=== PATIENT | female | born 1960 | race Caucasian/White ===

== ENCOUNTER 2016-04-27 14:57 | Emergency (ER) | payer OTHER ==
[~2016-04-27] VITALS: Ht 157.5 cm; Wt 64.8 kg
[2016-04-27 15:10] VITALS: BP 137/84; PULSE 82; RESP 18; TEMP 98.9; O2SAT 96
[2016-04-27 19:55] LABS: AUTOMATED NEUTROPHIL # 7.7 TH/MM3 (1.8-7.7); BASOPHIL # 0.1 TH/MM3 (0-0.2); BASOPHIL % 0.9 % (0.0-2.0); EOSINOPHIL # 0.2 TH/MM3 (0-0.4); EOSINOPHIL % 1.5 % (0.0-4.0); LYMPH % 40.8 % (9.0-44.0); LYMPHOCYTE # 5.9 TH/MM3 (1.0-4.8); MEAN CORPUSCULAR HEMOGLOBIN 29.4 PG (27.0-34.0); NEUT % 52.8 % (16.0-70.0); PLATELET COUNT 284 TH/MM3 (150-450); RED BLOOD COUNT 5.51 MIL/MM3 (4.00-5.30); RED CELL DISTRIBUTION WIDTH 12.8 % (11.6-17.2); WHITE BLOOD COUNT 14.5 TH/MM3 (4.0-11.0)
[2016-04-27 20:00] LABS: HEMO FLAGS AUTO DIFF
[2016-04-27 20:06] LABS: POTASSIUM 4.2 MEQ/L (3.5-5.1)
[2016-04-27 20:10] LABS: BICARBONATE 24.1 MEQ/L (21.0-32.0)
[2016-04-27 20:22] LABS: BANDS 2 % (0-6); EOSINOPHILS 1 % (0-4); POLYS (SEG NEUTROPHILS) 53 % (16-70); WBC DIFF SAMPLE 100
[2016-04-27 20:24] LABS: PLATELET ESTIMATE SMEAR NORMAL (NORMAL); PLATELET MORPHOLOGY NORMAL (NORMAL); SCAN/DIFF FINAL DIFF MANUAL
--- NOTE | 2016-04-27 20:26 | RADHPO ---
EXAM DATE/TIME: 04/27/2016 19:25 [facility] COMPARISON: No previous studies available for comparison. INDICATIONS : Cough MEDICAL HISTORY : None. SURGICAL HISTORY : None. ENCOUNTER: Initial ACUITY: 3 days PAIN SCORE: 0/10 LOCATION: Bilateral chest FINDINGS: PA and lateral views of the chest demonstrate the lungs to be symmetrically aerated without evidence of mass, infiltrate or effusion. The cardiomediastinal contours are unremarkable. Osseous structure s are intact. CONCLUSION: No acute disease. Randolph Celaya MD on April 27, 2016 at 20:24 Board Certified Radiologist. This report was verified electronically.
[2016-04-27] MEDS ORDERED: LEVO.15 PO (22:05)
[2016-04-27] MEDS ORDERED: TEMA30CA PO (22:05)
[2016-04-27] MEDS ORDERED: VENTAER INH ×2 (22:05→22:09)
[2016-04-27] MEDS ORDERED: PROM6.256 PO (22:09)
[2016-04-27] MEDS ORDERED: LEVA500T PO (22:09)
[2016-04-27] MEDS ORDERED: PRED20 PO (22:09)
--- NOTE | 2016-04-27 22:13 | PD ---
HPI Chief Complaint: Cold / Flu Symptoms Time Seen by Provider: 21:53 Travel History International Travel<30 days: No Contact w/Intl Traveler<30days: No Traveled to known affect area: No History of Present Illness HPI This 55-year-old female is complaining of cough and congestion. She has a history of COPD. She used to smoke 3 packs a day. She says she is down to half a pack. She uses an albuterol nebulizer and inhaler. She's been sick for several weeks. She took a course of doxycycline which seemed to help but then she got worse again. He feels short of breath at times. She has been on prednisone a lot in the past. 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 [facility] Past Medical History Cardiovascular Problems: Yes (Avascular necrosis ) Respiratory: Yes (Asthma, bronchitis ) ?: Not Social History Tobacco Use: Yes Allergies-Medications (Allergen,Severity, Reaction): Coded Allergies: Penicillin (Verified Allergy, Severe, Throat swelling, 04/27/16) Reported Meds & Prescriptions Reported Meds & Active Scripts Active Promethazine-Codeine Liq 6.25-10 Mg/5 Ml Syrp 10 Ml PO Q4H PRN 7 Days Levaquin (Levofloxacin) 500 Mg Tab 500 Mg PO DAILY Prednisone 20 Mg Tab 60 Mg PO DAILY 5 Days 40 MG twice a day x 3 days, then 20 MG daily x 3 days, then 10 MG daily x 3 days Ventolin Hfa 18 GM Inh (Albuterol Sulfate) 90 Mcg/Act Aer 1 Puff INH Q4H PRN Reported Ventolin Hfa 18 GM Inh (Albuterol Sulfate) 90 Mcg/Act Aer 1 Puff INH Q4H PRN Temazepam 30 Mg Cap 30 Mg PO HS PRN Synthroid (Levothyroxine Sodium) 150 Mcg Tab 150 Mcg PO DAILY Review of Systems General / Constitutional: No: Fever, Chills Eyes: No: Diploplia HENT: Positive: Sore Throat, No: Headaches, Lightheadedness Cardiovascular: No: Chest Pain or Discomfort Respiratory: Positive: Cough, Shortness of Breath Gastrointestinal: No: Vomiting, Diarrhea Genitourinary: No: Urgency Musculoskeletal: No: Myalgias Skin: No Rash Physical Exam Narrative GENERAL: Well-developed female SKIN: Warm and dry. HEAD: Atraumatic. Normocephalic. EYES: Pupils equal and round. No scleral icterus. No injection or drainage. ENT: No nasal bleeding or discharge. Mucous membranes pink and moist. NECK: Trachea midline. No JVD. CARDIOVASCULAR: Regular rate and rhythm. No murmur appreciated. RESPIRATORY: No accessory muscle use. Occasional rhonchi, diminished breath sounds overall. Breath sounds equal bilaterally. GASTROINTESTINAL: Abdomen soft, non-tender, nondistended. Hepatic and splenic margins not palpable. MUSCULOSKELETAL: No obvious deformities. No clubbing. No cyanosis. No edema. NEUROLOGICAL: Awake and alert. No obvious cranial nerve deficits. Motor grossly within normal limits. Normal speech. PSYCHIATRIC: Appropriate mood and affect; insight and judgment normal. Data Data Last Documented VS Vital Signs Date Time Temp Pulse Resp B/P Pulse Ox O2 Delivery O2 Flow Rate FiO2 04/27/16 22:06 Room Air 04/27/16 15:10 98.9 82 18 137/84 96 Orders Complete Blood Count With Diff (04/27/16 19:19) Basic Metabolic Panel (Bmp) (04/27/16 19:19) Chest, Pa & Lat (04/27/16 19:19) Blood Culture (04/27/16 19:19) Iv Access Insert/Monitor (04/27/16 19:19) Ecg Monitoring (04/27/16 19:19) Oxygen Administration (04/27/16 19:19) Oximetry (04/27/16 19:19) Electrocardiogram (04/27/16 19:19) Prednisone (Deltasone) (04/27/16 22:15) Levofloxacin (Levaquin) (04/27/16 22:15) Labs Laboratory Tests Test 04/27/16 19:46 White Blood Count 14.5 TH/MM3 Red Blood Count 5.51 MIL/MM3 Hemoglobin 16.2 GM/DL Hematocrit 49.0 % Mean Corpuscular Volume 89.0 FL Mean Corpuscular Hemoglobin 29.4 PG Mean Corpuscular Hemoglobin 33.0 % Concent Red Cell Distribution Width 12.8 % Platelet Count 284 TH/MM3 Mean Platelet Volume 7.8 FL Neutrophils (%) (Auto) 52.8 % Lymphocytes (%) (Auto) 40.8 % Monocytes (%) (Auto) 4.0 % Eosinophils (%) (Auto) 1.5 % Basophils (%) (Auto) 0.9 % Neutrophils # (Auto) 7.7 TH/MM3 Lymphocytes # (Auto) 5.9 TH/MM3 Monocytes # (Auto) 0.6 TH/MM3 Eosinophils # (Auto) 0.2 TH/MM3 Basophils # (Auto) 0.1 TH/MM3 CBC Comment AUTO DIFF Differential Total Cells 100 Counted Neutrophils % (Manual) 53 % Band Neutrophils % 2 % Lymphocytes % 39 % Monocytes % 5 % Eosinophils % 1 % Neutrophils # (Manual) 8.0 TH/MM3 Differential Comment FINAL DIFF MANUAL Platelet Estimate NORMAL Platelet Morphology Comment NORMAL Sodium Level 141 MEQ/L Potassium Level 4.2 MEQ/L Chloride Level 108 MEQ/L Carbon Dioxide Level 24.1 MEQ/L Anion Gap 9 MEQ/L Blood Urea Nitrogen 9 MG/DL Creatinine 0.77 MG/DL Estimat Glomerular Filtration 77 ML/MIN Rate Random Glucose 93 MG/DL Calcium Level 8.9 MG/DL [facility] Medical Decision Making Medical Screen Exam Complete: Yes Emergency Medical Condition: Yes Medical Record Reviewed: Yes Differential Diagnosis Differential includes COPD, pneumonia, bronchitis, Narrative Course Chest x-ray has been read as negative. Lab work is unremarkable. Patient has COPD exacerbation secondary to infection. She will be placed on Levaquin and prednisone. Diagnosis Primary Impression: COPD exacerbation Scripts Promethazine-Codeine Liq 6.25-10 Mg/5 Ml Syrp10 Ml PO Q4H PRN (COUGH AND/OR COLD SYMPTOMS) 7 Days Ref 0 Prov:Terry Lugo MD 04/27/16 Levofloxacin (Levaquin)500 Mg Vfl012 Mg PO DAILY #7 TAB Ref 0 Prov:Terry Lugo MD 04/27/16 Prednisone 20 Mg Tab60 Mg PO DAILY 5 Days Ref 0 40 MG twice a day x 3 days, then 20 MG daily x 3 days, then 10 MG daily x 3 days Prov:Terry Lugo MD 04/27/16 Albuterol 18 GM Inh (Ventolin Hfa 18 GM Inh)90 Mcg/Act Aer1 Puff INH Q4H PRN ( SHORTNESS OF BREATH) #1 INHALER Ref 0 Prov:Terry Lugo MD 04/27/16 Disposition: 01 DISCHARGE HOME Condition: Stable Terry Lugo MD Apr 27, 2016 22:13
[2016-04-27] MEDS ORDERED: predniSONE 20 MG TAB PO ONE (22:15)
[2016-04-27] MEDS ORDERED: LEVOFLOXACIN 500 MG TAB PO ONE (22:15)
[2016-04-27 22:20] VITALS: BP 142/105
--- NOTE | 2016-04-28 17:00 | EKG ---
Date Performed: 04/27/2016 Time Performed: 19:39:28 PTAGE: 55 years EKG: Sinus rhythm with PVC(s) Inferior T wave changes are nonspecific Borderline ECG NO PREVIOUS TRACING DOCTOR: Alli Landa Interpretating Date/Time 04/28/2016 16:58:46
== END 2016-04-27 22:29 | disposition home or self-care (01) ==
LOC: PHED 14:57
DX: J44.1 Chronic obstructive pulmonary disease with (acute) exacerbation (principal); I49.3 Ventricular premature depolarization; Z72.0 Tobacco use
CPT/HCPCS: 71020; 80048; 85007; 85027; 87040; 93005; 99284; J7512

== ENCOUNTER 2016-12-07 11:59 | Emergency (ER) | payer OTHER ==
[~2016-12-07] VITALS: Ht 160 cm; Wt 70.0 kg
[~2016-12-07 11:59] MED LIST: LEVA500T PO; LEVO.15 PO; PRED20 PO; PROM6.256 PO; TEMA30CA PO; VENTAER INH
[2016-12-07 12:06] VITALS: BP 175/100; PULSE 68; RESP 15; TEMP 98.6; O2SAT 95
[2016-12-07] MEDS ORDERED: IBUP-1129 PO (12:19)
[2016-12-07] MEDS ORDERED: TRAM50TA PO (12:19)
[2016-12-07] MEDS ORDERED: SYNT175T PO (12:19)
[2016-12-07] MEDS ORDERED: KETOROLAC TROMETHAMINE 60 MG/2 ML (IM) VIAL IM ONE (12:30)
[2016-12-07] MEDS ORDERED: ORPHENADRINE INJ 60 MG/2 ML AMP IM ONE (12:30)
--- NOTE | 2016-12-07 12:31 | PD ---
HPI Chief Complaint: Back/ Neck Pain or Injury Time Seen by Provider: 12:13 Travel History International Travel<30 days: No Contact w/Intl Traveler<30days: No Traveled to known affect area: No History of Present Illness HPI 56-year-old female presents to the emergency room for evaluation of right lower back pain radiates to the right lower extremity that started this morning. Patient denies trauma or injury. States she woke up with the pain. Pain is worse with any range of motion of the back or when she applies weight to the right leg. She took 800 mg ibuprofen without any relief in symptoms. She also took a tramadol without any relief. Patient denies fever, chills, nausea, vomiting, night sweats, weight loss, IV drug use, saddle anesthesia, loss of bowel or bladder control, or lower extremity paresthesias. She has history of low back pain and states it feels like her back may be about to pop out again. States her father lives with her and has had shingles several times but she has never had it. PFSH Past Medical History Asthma: Yes Cardiovascular Problems: Yes (Avascular necrosis ) Diminished Hearing: No Respiratory: Yes (Asthma, bronchitis ) Seizures: Yes Thyroid Disease: Yes Tetanus Vaccination: < 5 Years Influenza Vaccination: Yes ?: Not Past Surgical History Appendectomy: Yes Hysterectomy: Yes Tonsillectomy: Yes Other Surgery: Yes (BREAST REDUCTION) Social History Alcohol Use: No Tobacco Use: Yes (1/2 PPD) Substance Use: No Allergies-Medications (Allergen,Severity, Reaction): Coded Allergies: bee venom protein (honey bee) (Verified Allergy, Severe, Anaphylaxis, 12/07) penicillin G (Unverified Allergy, Severe, Throat swelling, 12/07/16) Reported Meds & Prescriptions Reported Meds & Active Scripts Active Reported Tramadol (Tramadol HCl) 50 Mg Tab 50 Mg PO Q4H PRN Motrin Ib (Ibuprofen) 200 Mg Tablet 800 Mg PO DIRECTED Synthroid (Levothyroxine Sodium) 175 Mcg Tab 175 Mcg PO DAILY Temazepam 30 Mg Cap 30 Mg PO HS PRN Review of Systems Except as stated in HPI: all other systems reviewed are Neg Physical Exam Narrative GENERAL: Well-nourished, well-developed female in no acute distress. Afebrile. Ambulatory. SKIN: Focused skin assessment warm/dry. No erythema or ecchymosis. HEAD: Normocephalic. EYES: No scleral icterus. No injection or drainage. NECK: Supple, trachea midline. No JVD or lymphadenopathy. CARDIOVASCULAR: Regular rate and rhythm without murmurs, gallops, or rubs. RESPIRATORY: Breath sounds equal bilaterally. No accessory muscle use. BACK: No midline tenderness. No obvious deformity. No CVA tenderness. No rash. Tenderness to palpation of the right upper buttocks. 2+ Achilles and patellar reflexes are equal bilaterally. Data Data Last Documented VS Vital Signs Date Time Temp Pulse Resp B/P (MAP) Pulse Ox O2 Delivery O2 Flow Rate FiO2 12/07/16 12:06 98.6 68 15 175/100 (125) 95 Orders Orders Ketorolac Inj (Toradol Inj) (12/07/16 12:30) Orphenadrine Inj (Norflex Inj) (12/07/16 12:30) [facility] Medical Decision Making Medical Screen Exam Complete: Yes Emergency Medical Condition: Yes Medical Record Reviewed: Yes Differential Diagnosis Low back strain, sciatica, muscle spasm, fracture Narrative Course 56-year-old female presents to the emergency room for evaluation of low back pain that started this morning without trauma or injury. Patient has history of low back pain and states it feels as though it's about to go out again. Pain is localized to the right upper buttocks with radiation into the right leg. No focal neurological deficits. No midline tenderness. No red flag symptoms. No indication for emergent imaging at this time. Likely muscle strain with sciatica. Patient given Toradol and Norflex in the emergency room. She'll be discharged with prescriptions for ibuprofen, Robaxin, and Decadron. Told to follow up with primary care physician if symptoms persist for outpatient MRI or return for worsening symptoms. She understands and agrees to plan. Diagnosis Primary Impression: Low back strain Qualified Codes: S39.012A - Strain of muscle, fascia and tendon of lower back , initial encounter Referrals: Primary Care Physician Additional Instructions: Rest and drink plenty of fluids. Decadron as directed, until gone. Take with food. Do not take at the same time as ibuprofen. Take Robaxin as directed, as needed for pain. Take ibuprofen with food as directed, as needed for pain. Apply ice to the affected area for 20 minutes at a time, as needed for pain and swelling. Follow-up with a primary care physician. Return to the emergency room for worsening symptoms. Disposition: 01 DISCHARGE HOME Condition: Stable Theresa Al Dec 07, 2016 12:30
[2016-12-07] MEDS ORDERED: ROBA750T PO (12:32)
[2016-12-07] MEDS ORDERED: IBUP-232 PO (12:32)
[2016-12-07] MEDS ORDERED: PRED20 PO (12:32)
== END 2016-12-07 12:51 | disposition home or self-care (01) ==
LOC: PHEFT 11:59
DX: S39.012A Strain of muscle, fascia and tendon of lower back, initial encounter (principal); X58.XXXA Exposure to other specified factors, initial encounter; F17.210 Nicotine dependence, cigarettes, uncomplicated; J45.909 Unspecified asthma, uncomplicated; E07.9 Disorder of thyroid, unspecified
CPT/HCPCS: 96372; 99284; J1885; J2360

== ENCOUNTER 2017-04-06 18:02 | Emergency (ER) | payer OTHER ==
[~2017-04-06] VITALS: Ht 157.5 cm; Wt 76.0 kg
[~2017-04-06 18:02] MED LIST changes: +IBUP-1129 PO; +IBUP-232 PO; -LEVA500T PO; -LEVO.15 PO; -PROM6.256 PO; +ROBA750T PO; +SYNT175T PO; +TRAM50TA PO; -VENTAER INH
[2017-04-06 18:05] VITALS: BP 221/136; PULSE 68; RESP 22; TEMP 97.8; O2SAT 94
[2017-04-06] MEDS ORDERED: ALBUAER3 INH (18:29)
[2017-04-06] MEDS ORDERED: UMEC1AER INH (18:29)
--- NOTE | 2017-04-06 18:29 | PD ---
HPI Chief Complaint: Respiratory Symptoms Time Seen by Provider: 18:28 Travel History International Travel<30 days: No Contact w/Intl Traveler<30days: No Traveled to known affect area: No History of Present Illness HPI Patient 48-year-old female one pack per day smoker presents emergency department for evaluation of cough for the past 2 weeks. Patient states he lists, her primary care physician had prescribed her Phenergan and codeine cough syrup which was doing significant amount of relief but she has run out of this. She was also prescribed doxycycline but this gave her an upset stomach so she did not take it all. She states symptoms for 2 weeks, constant, was relieved by Phenergan and codeine cough syrup, context as smoker. No fevers no nausea vomiting no chest pain no shortness of breath. PFSH Past Medical History Hx Anticoagulant Therapy: No Asthma: Yes Cardiovascular Problems: Yes (Avascular necrosis ) Diabetes: No Diminished Hearing: No Respiratory: Yes (ASTHMA) Seizures: Yes Thyroid Disease: Yes Tetanus Vaccination: < 5 Years Influenza Vaccination: Yes ?: Not Past Surgical History Appendectomy: Yes Hysterectomy: Yes Tonsillectomy: Yes Other Surgery: Yes (BREAST REDUCTION) Social History Alcohol Use: No Tobacco Use: Yes (03/23 PPD) Substance Use: No Allergies-Medications (Allergen,Severity, Reaction): Coded Allergies: bee venom protein (honey bee) (Verified Allergy, Severe, Anaphylaxis, 04/06) penicillin G (Unverified Allergy, Severe, Throat swelling, 04/06/17) Reported Meds & Prescriptions Reported Meds & Active Scripts Active Promethazine-Codeine Liq 6.25-10 Mg/5 Ml Syrp 5 Ml PO Q6H PRN Azithromycin 250 Mg Tab 250 Mg PO DIRECTED Take 2 tabs (500 mg) on day 1 then 1 tab daily x 4 days. Prednisone 10 Mg Tab 10 Mg PO DIRECTED 60mg daily on day 1-7, 40mg on day 8-10, 20mg on day 11-13, 10mg on day 14-16 Prednisone 20 Mg Tab 40 Mg PO DAILY Take 40 mg (2 tablets) daily for 5 days Reported Anoro Ellipta Inh (Umeclidinium/Vilanterol) 62.5-25 Mcg/Act Aero 1 Puff INH DAILY Proair Hfa 8.5 GM Inh (Albuterol Sulfate) 90 Mcg/Act Aer 2 Puff INH Q4-6H PRN 108 mcg/actuation Tramadol (Tramadol HCl) 50 Mg Tab 50 Mg PO Q4H PRN Synthroid (Levothyroxine Sodium) 175 Mcg Tab 175 Mcg PO DAILY Temazepam 30 Mg Cap 30 Mg PO HS PRN Review of Systems Except as stated in HPI: all other systems reviewed are Neg Physical Exam Narrative GENERAL: Well-developed, well-nourished, smells of cigarette smoke, exhibiting nearly constant dry cough on initial evaluation. SKIN: Focused skin assessment warm/dry. No wound HEAD: Atraumatic. Normocephalic. EYES: Pupils equal and round. No scleral icterus. No injection or drainage. ENT: No nasal bleeding or discharge. Mucous membranes pink and moist. NECK: Trachea midline. No JVD. CARDIOVASCULAR: Regular rate and rhythm. No murmur appreciated. RESPIRATORY: No accessory muscle use. End expiratory wheezing which are coarse bilaterally. Breath sounds equal bilaterally. GASTROINTESTINAL: Abdomen soft, non-tender, nondistended. Hepatic and splenic margins not palpable. MUSCULOSKELETAL: No obvious deformities. No clubbing. No cyanosis. No edema. NEUROLOGICAL: Awake and alert. No obvious cranial nerve deficits. Motor grossly within normal limits. Normal speech. PSYCHIATRIC: Appropriate mood and affect; insight and judgment normal. Data Data Last Documented VS Vital Signs Date Time Temp Pulse Resp B/P (MAP) Pulse Ox O2 Delivery O2 Flow Rate FiO2 04/06/17 20:41 90 18 96 04/06/17 19:54 Room Air 04/06/17 18:05 97.8 Orders Orders Chest, Pa & Lat (04/06/17 ) Promethazine/Codeine Liq (Phenergan-Code (04/06/17 18:30) Lorazepam Inj (Ativan Inj) (04/06/17 19:30) Lidocaine Pf 2% Neb (Lidocaine Pf 2% Neb (04/06/17 19:30) Albuterol Neb (Albuterol Neb) (04/06/17 19:30) Ed Discharge Order (04/06/17 20:26) [facility] Medical Decision Making Medical Screen Exam Complete: Yes Emergency Medical Condition: Yes Differential Diagnosis Bronchitis, bronchiolitis, pneumonia Narrative Course Patient roomed in emergency department, given Phenergan and codeine cough syrup which didn't significantly control her symptoms. Lidocaine and albuterol nebulization. Chest x-ray does show evidence for bronchiolitis. No indication for laboratory workup at this time, blood pressure normalizing after cough under control. Discussed symptomatic management of bronchiolitis with patient need for follow-up the primary care physician and smoking cessation as well to avoid risk for cancer heart disease and stroke. She verbalized understanding and agreement. Will be placed on extended course of prednisone, she does have a nebulizer at home as well as albuterol she has a decent supply of. Discussed return to ED criteria need follow-up with primary care physician. Diagnosis Primary Impression: Bronchiolitis Additional Impression: Smoking Additional Instructions: Avoid sleeping pill while taking the cough syrup they may make you overly drowsy. Med/Other Pt SpecificInfo: Prescription(s) given Scripts Promethazine-Codeine Liq (Promethazine-Codeine Liq) 6.25-10 Mg/5 Ml Syrp 5 ML PO Q6H Y for COUGH AND/OR COLD SYMPTOMS, #120 ML 0 Refills Prov: Josue Wilcox MD 04/06/17 Azithromycin (Azithromycin) 250 Mg Tab 250 MG PO DIRECTED for Infection, #6 TAB 0 Refills Take 2 tabs (500 mg) on day 1 then 1 tab daily x 4 days. Prov: Josue Wilcox MD 04/06/17 Prednisone (Prednisone) 10 Mg Tab 10 MG PO DIRECTED, #63 TAB 0 Refills 60mg daily on day 1-7, 40mg on day 8-10, 20mg on day 11-13, 10mg on day 14-16 Prov: Josue Wilcox MD 04/06/17 Disposition: 01 DISCHARGE HOME Condition: Stable Josue Wilcox MD Apr 06, 2017 18:29
[2017-04-06] MEDS ORDERED: PROMETHAZINE/CODEINE 6.25 MG/10 MG/5 ML CUP PO ONE (18:30)
--- NOTE | 2017-04-06 19:07 | RADRPT ---
EXAM DATE/TIME: 04/06/2017 18:51 [facility] COMPARISON: CHEST PA & LAT, April 27, 2016, 19:25. INDICATIONS : Cough for 2 weeks. MEDICAL HISTORY : None. SURGICAL HISTORY : None. ENCOUNTER: Initial ACUITY: 2 weeks PAIN SCORE: 4/10 LOCATION: Bilateral chest FINDINGS: PA and lateral views of the chest demonstrate the lungs to be symmetrically aerated without evidence of mass, infiltrate or effusion. Peribronchial thickening noted bilaterally. The cardiomediastinal c ontours are unremarkable. Osseous structures are intact. CONCLUSION: Bronchitis/bronchiolitis. Clear lungs. Amado Rios Jr., MD on April 06, 2017 at 19:04 Board Certified Radiologist. This report was verified electronically.
[2017-04-06] MEDS ORDERED: LORazepam 2 MG/ML VIAL IM ONE (19:30)
[2017-04-06] MEDS ORDERED: RESP: ALBUTEROL 2.5 MG/3 ML NEB (SCH) NEB ONE (19:30)
[2017-04-06] MEDS ORDERED: RESP: LIDOCAINE HCL 2% 2 ML NEB NEB ONE (19:30)
[2017-04-06 19:54] VITALS: BP 173/84; PULSE 96; RESP 18; O2SAT 95
[2017-04-06] MEDS ORDERED: PRED10 PO (20:23)
[2017-04-06] MEDS ORDERED: AZIT250T3 PO (20:23)
[2017-04-06] MEDS ORDERED: PROM6.256 PO (20:26)
== END 2017-04-06 20:42 | disposition home or self-care (01) ==
LOC: PHED 18:02
DX: J21.9 Acute bronchiolitis, unspecified (principal); J45.909 Unspecified asthma, uncomplicated; F17.210 Nicotine dependence, cigarettes, uncomplicated
CPT/HCPCS: 71046; 94664; 96372; 99284; J2060; J7613

== ENCOUNTER 2017-04-25 16:50 | Emergency (ER) | payer OTHER ==
[~2017-04-25] VITALS: Ht 157.5 cm; Wt 74.0 kg
[~2017-04-25 16:50] MED LIST changes: +ALBUAER3 INH; +AZIT250T3 PO; -IBUP-1129 PO; -IBUP-232 PO; +PRED10 PO; +PROM6.256 PO; -ROBA750T PO; +UMEC1AER INH
[2017-04-25 16:51] VITALS: BP_SYST 1; PULSE 82; RESP 16; TEMP 98; O2SAT 96
[2017-04-25 17:04] VITALS: BP 208/97; PULSE 99; RESP 16; O2SAT 98
[2017-04-25] MEDS ORDERED: PROCHLORPERAZINE INJ 10 MG/2 ML VIAL IV PUSH ONE (17:30)
--- NOTE | 2017-04-25 17:38 | PD ---
HPI Chief Complaint: Headache Time Seen by Provider: 17:23 Travel History International Travel<30 days: No Contact w/Intl Traveler<30days: No Traveled to known affect area: No History of Present Illness HPI 56yo F with asthma here with c/o headache for 3 days. Said she has been fighting the cold/flu and started having bilateral frontal headache that moves back and associated with nausea and vomiting. +Photophobia. Denies any fever, neck pain, chest pain, sob, abdominal pain, focal weakness or numbness. Pt said she is wheezing but she does not want any medication now and has pump at home. PFSH Past Medical History Hx Anticoagulant Therapy: No Asthma: Yes Cardiovascular Problems: Yes (Avascular necrosis ) Diabetes: No Diminished Hearing: No Respiratory: Yes (ASTHMA) Seizures: Yes Thyroid Disease: Yes Tetanus Vaccination: < 5 Years Influenza Vaccination: Yes ?: Not Past Surgical History Appendectomy: Yes Hysterectomy: Yes Tonsillectomy: Yes Other Surgery: Yes (BREAST REDUCTION) Social History Alcohol Use: No Tobacco Use: Yes (1/2 PPD) Substance Use: No Allergies-Medications (Allergen,Severity, Reaction): Coded Allergies: bee venom protein (honey bee) (Verified Allergy, Severe, Anaphylaxis, ) penicillin G (Unverified Allergy, Severe, Throat swelling, 04/25/17) Reported Meds & Prescriptions Reported Meds & Active Scripts Active Reported Synthroid (Levothyroxine Sodium) 175 Mcg Tab 175 Mcg PO DAILY Temazepam 30 Mg Cap 30 Mg PO HS PRN Review of Systems Except as stated in HPI: all other systems reviewed are Neg Physical Exam Narrative GENERAL: 56yo F in mild distress. SKIN: Focused skin assessment warm/dry. HEAD: Atraumatic. Normocephalic. +TTP bilateral frontal sinus. EYES: Pupils equal and round at 3mm bilaterally. EOMI ENT: No nasal bleeding or discharge. Mucous membranes pink and moist. NECK: No nuchal rigidity. CARDIOVASCULAR: Regular rate and rhythm. No murmur appreciated. RESPIRATORY: No accessory muscle use. End expiratory wheezing bilaterally. GASTROINTESTINAL: Abdomen soft, non-tender, nondistended. MUSCULOSKELETAL: No obvious deformities. No clubbing. No cyanosis. No edema. NEUROLOGICAL: Awake and alert. No obvious cranial nerve deficits. Motor grossly within normal limits. Normal speech. PSYCHIATRIC: Appropriate mood and affect; insight and judgment normal. Data Data Last Documented VS Vital Signs Date Time Temp Pulse Resp B/P (MAP) Pulse Ox O2 Delivery O2 Flow Rate FiO2 04/25/17 18:33 80 16 180/82 (114) 99 Room Air 04/25/17 16:[address] Brain W/O Iv Contrast(Rout) (04/25/17 ) Prochlorperazine Inj (Compazine Inj) (04/25/17 17:30) Hydralazine Inj (Apresoline Inj) (04/25/17 17:45) Complete Blood Count With Diff (04/25/17 17:46) Basic Metabolic Panel (Bmp) (04/25/17 17:46) Prothrombin Time / Inr (Pt) (04/25/17 17:46) Act Partial Throm Time (Ptt) (04/25/17 17:46) Ketorolac Inj (Toradol Inj) (04/25/17 18:30) Labs Laboratory Tests Test 04/25/17 17:53 White Blood Count 14.4 TH/MM3 Red Blood Count 4.80 MIL/MM3 Hemoglobin 13.6 GM/DL Hematocrit 42.1 % Mean Corpuscular Volume 87.8 FL Mean Corpuscular Hemoglobin 28.4 PG Mean Corpuscular Hemoglobin Concent 32.4 % Red Cell Distribution Width 11.9 % Platelet Count 256 TH/MM3 Mean Platelet Volume 8.3 FL Neutrophils (%) (Auto) 59.0 % Lymphocytes (%) (Auto) 32.2 % Monocytes (%) (Auto) 4.8 % Eosinophils (%) (Auto) 1.7 % Basophils (%) (Auto) 2.3 % Neutrophils # (Auto) 8.6 TH/MM3 Lymphocytes # (Auto) 4.6 TH/MM3 Monocytes # (Auto) 0.7 TH/MM3 Eosinophils # (Auto) 0.2 TH/MM3 Basophils # (Auto) 0.3 TH/MM3 CBC Comment DIFF FINAL Differential Comment Prothrombin Time 9.7 SEC Prothromb Time International Ratio 1.0 RATIO Activated Partial Thromboplast Time 25.9 SEC Blood Urea Nitrogen 10 MG/DL Creatinine 0.53 MG/DL Random Glucose 104 MG/DL Calcium Level 9.2 MG/DL Sodium Level 139 MEQ/L Potassium Level 3.5 MEQ/L Chloride Level 108 MEQ/L Carbon Dioxide Level 23.2 MEQ/L Anion Gap 8 MEQ/L Estimat Glomerular Filtration Rate 118 ML/MIN MDM Medical Decision Making Medical Screen Exam Complete: Yes Emergency Medical Condition: Yes Differential Diagnosis Hypertensive emergency vs. sinus headache vs. migraine headache Narrative Course 56yo F with headache for 3 days. Blood pressure was markedly elevated at 208/ 97. Pt given hydralazine 10mg IV and blood pressure has improved to 180/82. Labs reviewed, WBC 14.4, pt has been on steroids for her asthma. Pt wheezing but not sob and does not want treatment now. BMP unremarkable. CT brain unremarkable. Pt given toradol and compazine and reevaluated at bedside. Said headache has completely resolved. Pt feels good and want to go home. Strict return precautions given. Diagnosis Primary Impression: Headache Qualified Codes: R51 - Headache Patient Instructions: General Instructions Departure Forms: Tests/Procedures Additional Instructions: Please follow up with your primary care physician in 2-3 days. Return to the ED if symptoms worsen. Med/Other Pt SpecificInfo: Prescription(s) given Scripts Acetaminophen (Tylenol) 325 Mg Tab 650 MG PO Q6H Y for PAIN SCALE 1 TO 4, #20 TAB 0 Refills Prov: Sanjana José DO 04/25/17 Disposition: 01 DISCHARGE HOME Condition: Stable Sanjana José DO Apr 25, 2017 17:38
[2017-04-25] MEDS ORDERED: hydrALAZINE HCL 20 MG/ML VIAL IV PUSH ONE (17:45)
--- NOTE | 2017-04-25 18:18 | RADRPT ---
EXAM DATE/TIME: 04/25/2017 17:56 [facility] COMPARISON: No previous studies available for comparison. INDICATIONS : Headache. RADIATION DOSE: 57.80 CTDIvol (mGy) MEDICAL HISTORY : Seizures. SURGICAL HISTORY : Tonsillectomy. Hysterectomy.Appendectomy. ENCOUNTER: Initial ACUITY: 3 days PAIN SCALE: 4/10 LOCATION: cranial TECHNIQUE: Multiple contiguous axial images were obtained of the head. Using automated exposure control and adj ustment of the mA and/or kV according to patient size, radiation dose was kept as low as reasonably a chievable to obtain optimal diagnostic quality images. DICOM format image data is available electro nically for review and comparison. FINDINGS: There is no evidence for intracranial hemorrhage, mass effect, mass lesions, edema, or extra-axial fl uid collections. The visualized bony structures appear intact. The ventricles are normal size for t he patient's age. There are no signs of acute infarction for technique. CONCLUSION: Unremarkable study. Kevin Alvarez MD on April 25, 2017 at 18:14 Board Certified Radiologist. This report was verified electronically.
[2017-04-25 18:24] LABS: AUTOMATED NEUTROPHIL # 8.6 TH/MM3 (1.8-7.7); BASOPHIL # 0.3 TH/MM3 (0-0.2); BASOPHIL % 2.3 % (0.0-2.0); EOSINOPHIL # 0.2 TH/MM3 (0-0.4); EOSINOPHIL % 1.7 % (0.0-4.0); HEMATOCRIT 42.1 % (35.0-46.0); HEMOGLOBIN 13.6 GM/DL (11.6-15.3); LYMPH % 32.2 % (9.0-44.0); LYMPHOCYTE # 4.6 TH/MM3 (1.0-4.8); MEAN CELL VOLUME 87.8 FL (80.0-100.0); MEAN CORPUSCULAR HEMOGLOBIN 28.4 PG (27.0-34.0); MEAN CORPUSCULAR HGB CONC 32.4 % (32.0-36.0); MEAN PLATELET VOLUME 8.3 FL (7.0-11.0); MONO % 4.8 % (0.0-8.0); MONOCYTE # 0.7 TH/MM3 (0-0.9); PLATELET COUNT 256 TH/MM3 (150-450); RED CELL DISTRIBUTION WIDTH 11.9 % (11.6-17.2); WHITE BLOOD COUNT 14.4 TH/MM3 (4.0-11.0)
[2017-04-25 18:27] LABS: CALCIUM 9.2 MG/DL (8.5-10.1)
[2017-04-25 18:28] LABS: BICARBONATE 23.2 MEQ/L (21.0-32.0)
[2017-04-25] MEDS ORDERED: KETOROLAC TROMETHAMINE 30 MG/ML (IVP) VIAL IV PUSH ONE (18:30)
[2017-04-25 18:31] LABS: CREATININE 0.53 MG/DL (0.50-1.00); PROTHROMBIN TIME - PATIENT 9.7 SEC (9.8-11.6)
[2017-04-25 18:33] VITALS: BP 180/82; PULSE 80; RESP 16; O2SAT 99
[2017-04-25] MEDS ORDERED: TYLE325T PO (18:48)
[2017-04-25 18:54] VITALS: BP 174/85; TEMP 98.2
== END 2017-04-25 18:55 | disposition home or self-care (01) ==
LOC: PHED 16:50
DX: R51 Headache (principal); R11.2 Nausea with vomiting, unspecified; J45.909 Unspecified asthma, uncomplicated; R56.9 Unspecified convulsions; F17.200 Nicotine dependence, unspecified, uncomplicated; Z79.899 Other long term (current) drug therapy; Z88.0 Allergy status to penicillin
CPT/HCPCS: 70450; 80048; 85025; 85610; 85730; 96374; 96375; 99284; J0360; J0780; J1885

== ENCOUNTER 2017-06-01 09:14 | Emergency (ER) | payer OTHER ==
[~2017-06-01] VITALS: Ht 157.5 cm; Wt 74.0 kg
[~2017-06-01 09:14] MED LIST changes: -ALBUAER3 INH; -AZIT250T3 PO; -PRED10 PO; -PRED20 PO; -PROM6.256 PO; -TRAM50TA PO; +TYLE325T PO; -UMEC1AER INH
[2017-06-01 09:19] VITALS: BP 207/100; PULSE 97; RESP 18; TEMP 99.4; O2SAT 97
[2017-06-01] MEDS ORDERED: CIPR250T2 PO (09:24)
[2017-06-01] MEDS ORDERED: guaiFENesin/DEXTROMETHORPHAN 200 MG/20 MG/10 ML CUP PO STA (09:33)
--- NOTE | 2017-06-01 09:39 | PD ---
HPI Chief Complaint: Cold / Flu Symptoms Time Seen by Provider: 09:29 Travel History International Travel<30 days: No Contact w/Intl Traveler<30days: No Traveled to known affect area: No History of Present Illness HPI This is a 7-year-old female presented to the ER complaining of shortness of breath cough for the last 2 months. Patient has history of asthma/COPD, smokes half pack a day, states that she tried multiple antibiotics as well as a steroid pack for the last 2 months and still has the cough and shortness of breath. She has a nebulizer at home that she uses 3 times a day with no help. Denies any fever and cold here in the ER she had elevated temperature. PFSH Past Medical History Hx Anticoagulant Therapy: No Asthma: Yes Cardiovascular Problems: Yes Diabetes: No Diminished Hearing: No Hypertension: Yes Respiratory: Yes (ASTHMA) Seizures: Yes Thyroid Disease: Yes Tetanus Vaccination: < 5 Years ?: Not Past Surgical History Appendectomy: Yes Hysterectomy: Yes Tonsillectomy: Yes Other Surgery: Yes (BREAST REDUCTION) Social History Alcohol Use: No Tobacco Use: Yes (/2 PPD) Substance Use: No Allergies-Medications (Allergen,Severity, Reaction): Coded Allergies: bee venom protein (honey bee) (Verified Allergy, Severe, Anaphylaxis, 06/01) penicillin G (Unverified Allergy, Severe, Throat swelling, 06/01/17) Reported Meds & Prescriptions Reported Meds & Active Scripts Active Reported Ciprofloxacin (Ciprofloxacin HCl) 250 Mg Tab 250 Mg PO BID Synthroid (Levothyroxine Sodium) 175 Mcg Tab 175 Mcg PO DAILY Temazepam 30 Mg Cap 30 Mg PO HS PRN Review of Systems Except as stated in HPI: all other systems reviewed are Neg Physical Exam Narrative GENERAL: Constantly coughing, speaks in full sentences. SKIN: Focused skin assessment warm/dry. HEAD: Atraumatic. Normocephalic. EYES: Pupils equal and round. No scleral icterus. No injection or drainage. ENT: No nasal bleeding or discharge. Mucous membranes pink and moist. NECK: Trachea midline. No JVD. CARDIOVASCULAR: Regular rate and rhythm. No murmur appreciated. RESPIRATORY:MODERATE Wheezing bilaterally, no accessory muscle use, no acute distress. GASTROINTESTINAL: Abdomen soft, non-tender, nondistended. Hepatic and splenic margins not palpable. MUSCULOSKELETAL: No obvious deformities. No clubbing. No cyanosis. No edema. NEUROLOGICAL: Awake and alert. No obvious cranial nerve deficits. Motor grossly within normal limits. Normal speech. PSYCHIATRIC: Appropriate mood and affect; insight and judgment normal. Data Data Last Documented VS Vital Signs Date Time Temp Pulse Resp B/P (MAP) Pulse Ox O2 Delivery O2 Flow Rate FiO2 06/01/17 10:29 122 20 153/103 (120) 96 Room Air 06/01/17 09:50 21 06/01/17 09:19 99.4 Orders Orders Guaifen-Dm 200-20 Mg/10 Ml Liq (Robituss (06/01/17 09:33) Albuterol-Ipratropium Neb (Duoneb Neb) (06/01/17 09:45) Chest, Pa & Lat (06/01/17 ) Complete Blood Count With Diff (06/01/17 09:33) Comprehensive Metabolic Panel (06/01/17 09:33) B-Type Natriuretic Peptide (06/01/17 09:33) Troponin I (06/01/17 09:33) D-Dimer (06/01/17 09:39) Iv Access Insert/Monitor (06/01/17 09:39) Ecg Monitoring (06/01/17 09:39) Oximetry (06/01/17 09:39) Oxygen Administration (06/01/17 09:39) Sodium Chloride 0.9% Flush (Ns Flush) (06/01/17 09:45) Methylprednisolone So Succ Inj (Solumedr (06/01/17 09:45) Albuterol-Ipratropium Neb (Duoneb Neb) (06/01/17 09:45) Magnesium (Mg) (06/01/17 10:05) Resp Home Oxygen Walk Test (06/01/17 ) Labs Laboratory Tests Test 06/01/17 10:05 White Blood Count 10.4 TH/MM3 Red Blood Count 5.06 MIL/MM3 Hemoglobin 14.3 GM/DL Hematocrit 43.4 % Mean Corpuscular Volume 85.8 FL Mean Corpuscular Hemoglobin 28.2 PG Mean Corpuscular Hemoglobin Concent 32.9 % Red Cell Distribution Width 12.1 % Platelet Count 303 TH/MM3 Mean Platelet Volume 8.1 FL Neutrophils (%) (Auto) 69.5 % Lymphocytes (%) (Auto) 18.3 % Monocytes (%) (Auto) 5.1 % Eosinophils (%) (Auto) 2.7 % Basophils (%) (Auto) 4.4 % Neutrophils # (Auto) 7.2 TH/MM3 Lymphocytes # (Auto) 1.9 TH/MM3 Monocytes # (Auto) 0.5 TH/MM3 Eosinophils # (Auto) 0.3 TH/MM3 Basophils # (Auto) 0.5 TH/MM3 CBC Comment DIFF FINAL Differential Comment D-Dimer Quantitative (PE/DVT) 0.22 MG/L FEU Blood Urea Nitrogen 9 MG/DL Creatinine 0.69 MG/DL Random Glucose 87 MG/DL Total Protein 7.3 GM/DL Albumin 3.7 GM/DL Calcium Level 8.4 MG/DL Magnesium Level 2.2 MG/DL Alkaline Phosphatase 108 U/L Aspartate Amino Transf (AST/SGOT) 11 U/L Alanine Aminotransferase (ALT/SGPT) 29 U/L Total Bilirubin 0.2 MG/DL Sodium Level 141 MEQ/L Potassium Level 3.4 MEQ/L Chloride Level 107 MEQ/L Carbon Dioxide Level 24.0 MEQ/L Anion Gap 10 MEQ/L Estimat Glomerular Filtration Rate 87 ML/MIN Troponin I LESS THAN 0.02 NG/ML B-Type Natriuretic Peptide 70 PG/ML MDM Medical Decision Making Medical Screen Exam Complete: Yes Emergency Medical Condition: Yes Differential Diagnosis COPD exacerbation, bronchitis. Narrative Course This is a 57-year-old female presented the ER complaining of shortness of breath and cough for the last few weeks. In the ER patient has been audibly wheezing, saturating 96% on room air. A total of 4 nebulized treatment given to the patient and still patient is audibly wheezing. I spoke with Dr. Simmons the hospitalist special education science teacher the [facility] and he recommended outpatient treatment since given the fact that the patient is saturating good on room air. A walking test was done on the patient and saturation was 99% after walking. I will start the patient on inhaled corticosteroids 2 times daily and I will give her a course of steroids and Levaquin antibiotic as well as cough syrup. And I highly recommend to follow-up with cover operator and primary care physician as soon as the patient can. I advised the patient to return to ER if symptoms do not improve with this regimen for possible admission. Diagnosis Primary Impression: COPD exacerbation Additional Instructions: Take medication as directed follow-up with his cover operator and primary care physician return to ER if symptoms change or do not improve. Avoid smoking. Scripts Albuterol Neb (Albuterol Neb) 2.5 Mg/0.5 Ml Neb 2.5 MG NEB Q6HR NEB for Shortness of Breath, #60 BOX Note: The Albuterol Sulfate Inhalation Solution is concentrated and must be diluted. Read complete instructions carefully before using. Prov: Steven Bar MD 06/01/17 Budesonide-Formoterol Inh (Symbicort Inh) 160-4.5 Mcg/Act Aero 2 PUFF INH Q12HR, #1 INHALER 0 Refills Prov: Steven Bar MD 06/01/17 Levofloxacin (Levaquin) 500 Mg Tablet 500 MG PO DAILY for Infection for 5 Days, #5 TAB 0 Refills Prov: Steven Bar MD 06/01/17 Doxylamine-Dextromethorphan Liq (Robitussin Nighttime Cough Liq) 12.5-30 Mg/10 Ml Soln 10 ML PO Q6H Y for COUGH, #1 BOTTLE 0 Refills Prov: Steven Bar MD 06/01/17 Disposition: 01 DISCHARGE HOME Condition: Stable Steven Bar MD Jun 01, 2017 09:39
[2017-06-01] MEDS ORDERED: RESP: ALBUTEROL 2.5 MG/IPRATROPIUM 0.5 MG NEB (SCH) NEB ONE (09:45)
[2017-06-01] MEDS ORDERED: SODIUM CHLORIDE 0.9% FLUSH 10 ML FLUSH IVF PRN (09:45)
[2017-06-01] MEDS ORDERED: methylPREDNISolone SOD SUCC 125 MG/2 ML VIAL IV PUSH ONE (09:45)
[2017-06-01 09:50] VITALS: O2SAT 96
[2017-06-01] MEDS: RESP: ALBUTEROL 2.5 MG/IPRATROPIUM 0.5 MG NEB (SCH) INH ×3 (09:54→10:13)
--- NOTE | 2017-06-01 10:01 | RADRPT ---
EXAM DATE/TIME: 06/01/2017 09:42 [facility] COMPARISON: CHEST PA & LAT, April 06, 2017, 18:51. INDICATIONS : Worsening cough over the last 2 months. MEDICAL HISTORY : None. SURGICAL HISTORY : None. ENCOUNTER: [facility] ACUITY: 2 months PAIN SCORE: 0/10 LOCATION: Bilateral chest FINDINGS: No new focal pleural or parenchymal opacities. Cardiomediastinal contours are within normal limits. B damien thorax is intact. CONCLUSION: 1. No acute abnormality or significant interval change. Aurelio Valente MD on June 01, 2017 at 9:58 Board Certified Radiologist. This report was verified electronically.
[2017-06-01 10:15] LABS: AUTOMATED NEUTROPHIL # 7.2 TH/MM3 (1.8-7.7); BASOPHIL # 0.5 TH/MM3 (0-0.2); BASOPHIL % 4.4 % (0.0-2.0); EOSINOPHIL # 0.3 TH/MM3 (0-0.4); EOSINOPHIL % 2.7 % (0.0-4.0); HEMATOCRIT 43.4 % (35.0-46.0); HEMOGLOBIN 14.3 GM/DL (11.6-15.3); LYMPH % 18.3 % (9.0-44.0); LYMPHOCYTE # 1.9 TH/MM3 (1.0-4.8); MEAN CELL VOLUME 85.8 FL (80.0-100.0); MEAN CORPUSCULAR HEMOGLOBIN 28.2 PG (27.0-34.0); MEAN CORPUSCULAR HGB CONC 32.9 % (32.0-36.0); MEAN PLATELET VOLUME 8.1 FL (7.0-11.0); MONO % 5.1 % (0.0-8.0); MONOCYTE # 0.5 TH/MM3 (0-0.9); NEUT % 69.5 % (16.0-70.0); PLATELET COUNT 303 TH/MM3 (150-450); RED BLOOD COUNT 5.06 MIL/MM3 (4.00-5.30); RED CELL DISTRIBUTION WIDTH 12.1 % (11.6-17.2); WHITE BLOOD COUNT 10.4 TH/MM3 (4.0-11.0)
[2017-06-01 10:25] VITALS: RESP 20; O2SAT 96
[2017-06-01 10:29] VITALS: BP 153/103; PULSE 122; RESP 20; O2SAT 96
[2017-06-01 10:31] LABS: CHLORIDE 107 MEQ/L (98-107); SODIUM (NA) 141 MEQ/L (136-145)
[2017-06-01 10:35] LABS: CALCIUM 8.4 MG/DL (8.5-10.1)
[2017-06-01 10:36] LABS: ALBUMIN 3.7 GM/DL (3.4-5.0); BLOOD UREA NITROGEN 9 MG/DL (7-18); GLUCOSE,RANDOM 87 MG/DL (74-106); MAGNESIUM 2.2 MG/DL (1.5-2.5)
[2017-06-01 10:39] LABS: ALT (GPT) 29 U/L (10-53); AST (GOT) 11 U/L (15-37); CREATININE 0.69 MG/DL (0.50-1.00); GLOMERULAR FILTRATION RATE 87 ML/MIN (>89)
[2017-06-01 10:40] LABS: TOTAL BILIRUBIN ADULT 0.2 MG/DL (0.2-1.0); TOTAL PROTEIN 7.3 GM/DL (6.4-8.2)
[2017-06-01 10:42] LABS: ALKALINE PHOSPHATASE 108 U/L (45-117)
[2017-06-01 10:44] LABS: TROPONIN I LESS THAN 0.02 NG/ML (0.02-0.05)
[2017-06-01] MEDS ORDERED: LEVA500T33 PO (11:44)
[2017-06-01] MEDS ORDERED: SYMB160A INH (11:44)
[2017-06-01] MEDS ORDERED: DOXY1LIQ3 PO (11:44)
[2017-06-01] MEDS ORDERED: ALBU.5I NEB (11:44)
[2017-06-01 12:02] VITALS: BP 130/73; PULSE 109; RESP 20; O2SAT 96
== END 2017-06-01 12:04 | disposition home or self-care (01) ==
LOC: PHED 09:14
DX: J44.1 Chronic obstructive pulmonary disease with (acute) exacerbation (principal); R05 Cough; I10 Essential (primary) hypertension; R56.9 Unspecified convulsions; F17.210 Nicotine dependence, cigarettes, uncomplicated; Z88.0 Allergy status to penicillin
CPT/HCPCS: 71046; 80053; 83735; 83880; 84484; 85025; 85379; 94618; 94640; 94664; 96374; 99284; J2930

== ENCOUNTER → 2017-07-13 | Day surgery (SDC) | payer OTHER ==
[~2017-07-13] VITALS: Ht 157.5 cm; Wt 73.0 kg
[~2017-07-13] MED LIST changes: +ALBU.5I NEB; +CHLORHEXIDINE GLUCONATE 2 % 1 PACK (2 CLOTHS) TOPICAL PRN; +CIPR250T2 PO; +CLINDAMYCIN 600 MG/NS PREMIX 50 ML IV SCH; +DIFL100T PO; +DOXY1LIQ3 PO; +FAMOTIDINE 20 MG/2 ML VIAL ONE; +LACTATED RINGER'S 1000 ML IV PRN; +LEVA500T33 PO; +LIDOCAINE 1%/EPINEPHrine 1:100,000 SOLN 20 ML VIAL ONE; +METOPROLOL TARTRATE 25 MG TAB PO PRN; +OFLOXACIN 0.3% OPTH SOLN 5 ML BTL ONE; +POVIDONE IODINE 5% (ANTISEPSIS KIT) 4 APPLICATIONS EACH NARE PRN; +PROM6.256 PO; +SODIUM CHLORID 0.9% 500 ML IV PRN; +SYMB160A INH; +TOBR0.3S EACH EYE; -TYLE325T PO
[2017-07-13 08:05] VITALS: PULSE 68
--- NOTE | 2017-07-13 08:45 | MP ---
cc: Myles Garcia MD DATE OF OPERATION: 07/13/2017 SURGEON: Myles Garcia MD PREOPERATIVE DIAGNOSES: 1. Eustachian tube dysfunction. 2. Bilateral middle ear effusion. 3. Bilateral conductive hearing loss. POSTOPERATIVE DIAGNOSES: 1. Eustachian tube dysfunction. 2. Bilateral middle ear effusion. 3. Bilateral conductive hearing loss. PROCEDURE PERFORMED: Bilateral myringotomy and placement of T-type pressure equalizing tubes. INDICATIONS: Documented in the history and physical. DETAILS OF PROCEDURE: The patient was taken to OR #2 and placed in the supine position. Following induction of general anesthesia and intubation using a laryngeal mask apparatus, the right ear was examined under microscope and cleaned with a curette. Myringotomy was made in the posterior inferior quadrant and the tympanum was aspirated of a mucoid effusion. A T-type pressure equalizing tube was then placed into the opening and the canal was filled with Floxin otic drops. A cotton ball was placed in the meatus. The left ear was then operated in the same fashion with the same findings and the procedure was terminated. The patient was reversed from anesthesia and taken to recovery in good condition. There were no complications. ESTIMATED BLOOD LOSS: Less than 5 mL Myles Garcia MD JMSuresh/TL , 07:58 AM , 08:45 AM
[2017-07-13 08:55] VITALS: BP 122/77; PULSE 73; RESP 16; TEMP 97.6; O2SAT 96
== END | disposition home or self-care (01) ==
LOC: PHSDC 06:20
PROVIDERS: ATTEND Otolaryngology
DX: H69.83 Other specified disorders of Eustachian tube, bilateral (principal); H74.8X3 Other specified disorders of middle ear and mastoid, bilateral; H90.2 Conductive hearing loss, unspecified; I10 Essential (primary) hypertension; J44.9 Chronic obstructive pulmonary disease, unspecified
CPT/HCPCS: 00126; 69436; J7120